=== PATIENT | male | born 1960 | race Caucasian/White ===

== ENCOUNTER 2018-11-07 15:10 | Inpatient (IN) ==
--- NOTE | 2018-11-07 15:33 | Emergency Department Note ---
Disposition Clinical Impression: Bleeding gums, Thrombocytopenia Disposition: Admitted As Inpatient Condition: Good Time of Disposition: 17:29 General Adult HPI - General Chief complaint: ED Abdominal Pain Stated complaint: ABD pain, "spitting up blood" Time Seen by Provider: 11/07/18 15:13 Source: patient Mode of arrival: ambulatory Limitations: no limitations Nursing Notes Reviewed: Yes Vital Signs Reviewed: Yes - History of Present Illness HPI Narrative: Patient is a 58-year-old male that presents emergency department due to tasting blood in his mouth. Patient states that it began shortly prior to arrival. Patient states that he is taking a nap and woke up and was tasting blood. Patient states that he has not vomiting blood, coughing up blood or having any throat symptoms. Patient states that he has been using a different toothbrush other than his usual oral-B. patient states that he does have some upper epigastric and right upper quadrant abdominal pain. Patient states that the abdominal pain is chronic and has not changed. When asked why he came in today was that the abdominal pain or the blood in his mouth he states that it is because he was tasting blood in the back of his mouth and did not know where it was coming from. Patient states that the blood is bright red in color. Pain Scale: 5 - Related Data Home Medications Medication Instructions Recorded Confirmed Exenatide Microspheres [Bydureon 06/28/15 06/28/15 Pen] Fenofibrate Nanocrystallized 06/28/15 [Tricor] Insulin Glargine,Hum.rec.anlog 06/28/15 [Lantus Solostar] Lisinopril [Zestril] 06/28/15 Metformin HCl [Glucophage] 06/28/15 Niacin [Endur-Acin] 06/28/15 Novolog Flexpen 06/28/15 Pantoprazole Sodium 06/28/15 Paroxetine HCl 06/28/15 Simvastatin [Zocor] 06/28/15 hydrOXYzine HCl [Hydroxyzine HCl] 06/28/15 Allergies Allergy/AdvReac Type Severity Reaction Status Date / Time No Known Allergies Allergy Verified 06/28/15 15:30 All systems ED: reviewed and negative except as stated. Constitutional: Denies: fever Cardiovascular: Denies: chest pain Respiratory: Denies: dyspnea Gastrointestinal: Reports: abdominal pain (Chronic). Denies: nausea, vomiting, diarrhea Genitourinary: Denies: urgency, dysuria, frequency Neurological: Denies: weakness, numbness, paresthesias Hematological/Lymphatic: Reports: other (Spitting up blood) Past Medical History - Past Medical History Medical history: Reports: diabetes, hyperlipidemia, hypertension Psychiatric history: Reports: no psych history - Social History Smoking Status: Never smoker Smokeless Tobacco Status: No Alcohol use: Reports: none Drug use: Reports: none Physical Exam - General Limitations: no limitations General appearance: alert, in no apparent distress - Head Head exam: atraumatic, normocephalic - Eye Eye exam: Present: normal appearance, EOMI - ENT ENT exam: other (Patient has a small amount of bright red blood this coming from around the top molars in the left teeth 14 and 15. No visible laceration.) - Neck Neck exam: Present: normal inspection, full ROM, trachea midline - Respiratory Respiratory exam: Present: normal lung sounds bilaterally. Absent: respiratory distress, wheezes - Cardiovascular Cardiovascular exam: Present: regular rate, normal rhythm, normal heart sounds, +S1, +S2 - Abdominal Exam Abdominal exam: Present: soft, tenderness, normal bowel sounds Abdominal tenderness: Present: RUQ, epigastrium, mild - Neurological Exam Neurological exam: Present: alert, oriented X3 - Psychiatric Psychiatric exam: Present: normal affect, normal mood - Skin Skin exam: Present: warm, dry, other (Petechiae on the lower extremity) Course Vital Signs Temperature 98.0 F 11/07/18 15:11 Pulse Rate 119 11/07/18 15:11 Respiratory Rate 18 11/07/18 15:11 Blood Pressure 137/88 11/07/18 15:11 O2 Sat by Pulse Oximetry 95 11/07/18 15:11 Temperature 98.0 F 11/07/18 15:11 Pulse Rate 92 11/07/18 16:18 Respiratory Rate 16 11/07/18 16:18 Blood Pressure 141/83 11/07/18 16:18 O2 Sat by Pulse Oximetry 96 11/07/18 16:18 Oxygen Delivery Oxygen Delivery Room Air Medical Decision Making - MDM Narrative Medical decision making narrative: Due the patient presents emergency Department with reports of spitting up blood a detailed physical exam was performed which showed small amount of bright red blood around teeth 14 and 15. Patient also had some petechiae on the lower extremities as well as the left forearm. Laboratory testing was obtained and showed the patient had platelets of 8. Called and spoke with hematology oncology with Dr. Sewell and she recommended the patient received Solu-Medrol. The patient will require a transfusion that will be done by the hospitalist. Spoke with the admitting hospitalist Dr. Robles and Dr. Jenkins and they have accepted the patient to their service. Patient be admitted to the hospital this time for further evaluation and management of his arms that opinion. Hematology oncology will see the patient in consult. Patient was updated on these findings is agreement with being admitted to the hospital. - Medical Records Medical records reviewed: Yes I reviewed the patient's medical records. - Lab Data Lab results reviewed: Yes I reviewed the patient's lab results. Result diagrams: 11/07/18 18:35 11/07/18 16:06 Lab Results 11/07/18 11/07/18 11/07/18 Range/Units 16:06 16:06 16:06 WBC 4.7 (4.3-11.1) K/mcL RBC 3.61 L (4.19-5.50) M/mcL Hgb 11.0 L (12.9-16.9) g/dL Hct 30.9 L (37.5-50.1) % MCV 85.6 (83.0-100.0) fL MCH 30.5 (28.0-33.3) pg MCHC 35.6 H (31.6-35.5) g/dL RDW 17.4 H (11.5-14.5) % Plt Count 8 L* (140-400) K/mcL MPV 8.4 L (9.4-12.4) fL Immature Gran % 0.2 (0-4) % Seg Neutrophils % 40.9 % Lymphocytes % 50.8 % Monocytes % 7.7 % Eosinophils % 0.2 % Basophils % 0.2 % Neutrophils # 1.9 (1.6-8.9) K/mcL Lymphocytes # 2.4 (0.6-4.6) K/mcL Monocytes # 0.4 (0.0-1.3) K/mcL Eosinophils # 0.0 (0.0-0.6) K/mcL Basophils # 0.0 (0.0-0.2) K/mcL Platelet Estimate Marked Decrease L (Normal) Immature Plt Fraction 4.3 (1.1-6.1) % PT 10.3 (9.4-12.1) Seconds INR 0.9 APTT 31.5 (26.0-36.0) Seconds Sodium 131 L (136-145) mEq/L Potassium 3.6 (3.5-5.1) mEq/L Chloride 97 L (98-107) mEq/L Carbon Dioxide 23 (23-29) mEq/L BUN 16 (6-20) mg/dL Creatinine 0.61 L (0.70-1.30) mg/dL Est GFR ( Amer) > 60 (> 60) Est GFR (Non-Af Amer) > 60 (> 60) BUN/Creatinine Ratio 26 (6-26) Glucose 296 H (70-105) mg/dL Calculated Osmolality 284 (280-300) Calcium 9.3 (8.6-10.3) mg/dL Attestation Statement - Attestation Attestation: I, Jose Juan Palm, examined this patient and my medical decision-making was reviewed with the CONTACT CENTER PROFESSIONAL/PA/Advanced Practice Nurse/Resident Physician. I agree with the documented findings, disposition and treatment plan as described except to the extent set forth below. 58-year-old male presents presents emergency department for further evaluation of tasting blood in his mouth. Patient states he often has bleeding from his gums with brushing and has to by special toothbrushes. Patient states that this is occurred intermittently over the past year. Patient denies fever, chills, nausea, vomiting, recent trauma. Upon evaluation of the patient's mouth he had had bleeding from the left maxillary gingiva. Patient does not appear to have erythema or abscess or other injury however he had persistent bleeding. On other physical examination the patient had petechiae of the bilateral lower extremity. He does state that he bleeds excessively when cut. We obtained laboratory evaluation which showed thrombocytopenia. We spoke with the financial coach who recommended steroids and platelet transfusion and to be admitted to hospitalist for further care and evaluation. Patient was comfortable with this plan of action.
[2018-11-07] MEDS ORDERED: 0.9 % Sodium Chloride 1,000 ML IVC ONE (15:52)
[2018-11-07 16:24] LABS: Basophils % 0.2 %; Immature Granulocytes % 0.2 % (0-4); Mean Corpuscular Volume 85.6 fL (83.0-100.0)
[2018-11-07 16:26] LABS: Eosinophils % 0.2 %; Hematocrit 30.9 % (37.5-50.1); Immature Platelets 4.3 % (1.1-6.1); Lymphocytes # 2.4 K/mcL (0.6-4.6); Lymphocytes % 50.8 %; Mean Corpuscular HGB Conc 35.6 g/dL (31.6-35.5); Mean Corpuscular Hemoglobin 30.5 pg (28.0-33.3); Mean Platelet Volume 8.4 fL (9.4-12.4); Monocytes # 0.4 K/mcL (0.0-1.3); Monocytes % 7.7 %; Neutrophils # 1.9 K/mcL (1.6-8.9); Red Blood Count 3.61 M/mcL (4.19-5.50); Red Cell Distribution Width 17.4 % (11.5-14.5); Segmented Neutrophils % 40.9 %; White Blood Count 4.7 K/mcL (4.3-11.1)
[2018-11-07 16:31] LABS: INR 0.9; Prothrombin Time 10.3 Seconds (9.4-12.1)
[2018-11-07 16:34] LABS: Activated Partial Thrombo Time 31.5 Seconds (26.0-36.0)
[2018-11-07 16:43] LABS: Blood Urea Nitrogen 16 mg/dL (6-20); Calcium 9.3 mg/dL (8.6-10.3); Carbon Dioxide 23 mEq/L (23-29); Chloride 97 mEq/L (98-107); Glucose 296 mg/dL (70-105); Osmolality,Calculated 284 (280-300); Potassium 3.6 mEq/L (3.5-5.1); Sodium 131 mEq/L (136-145)
[2018-11-07 16:45] LABS: BUN/Creatinine Ratio 26 (6-26); eGFR For African Americans > 60 (> 60); eGFR For Non-African Americans > 60 (> 60)
[2018-11-07 17:02] LABS: Platelet Count 8 K/mcL (140-400)
[2018-11-07 17:03] LABS: Platelet Estimate Marked Decrease (Normal)
[2018-11-07] MEDS ORDERED: methylPREDNISolone 125 MG/2 ML VIAL IVP ONE (17:11)
[2018-11-07] MEDS ORDERED: Naloxone 0.4 MG/ML INJ IVP PRN (18:14)
[2018-11-07] MEDS ORDERED: D5% in Water 1,000 ML IVC PRN (18:18)
[2018-11-07] MEDS ORDERED: *HR* Dextrose 50 % in Water (Syg) 50 ML SYRINGE IVP PRN (18:18)
[2018-11-07] MEDS ORDERED: Dextrose Gel 15 GM/37.5 ML TUBE PO PRN ×2 (18:18)
[2018-11-07] MEDS ORDERED: Isovue-370 500 ML BOTTLE IVP ONE (18:20)
[2018-11-07] MEDS ORDERED: Ondansetron 4 MG/2 ML VIAL IVP PRN (18:24)
--- NOTE | 2018-11-07 18:24 | Internal Med History&Physical ---
Date of Encounter: 11/07/18 Time of Encounter: 18:24 Internal Medicine - H&P: HPI Chief complaint: Blood in mouth History of present illness: Mr. Buckner is a 58 year old male with past medical history of diabetes on insulin poorly controlled and GERD. He presented to the ED this afternoon complaining of blood in his mouth upon waking up. Reports for the past year he has had bleeding gums while brushing his teeth. Additionally has noticed petechiae in his lower extremity as well as abdomen for the past 2 month. Denies any recent layo-aao-vbzarbu medication or antiplatelet use. Does state about one month ago had severe back pain, was thought to have nephrolithiasis and was prescribed a medication. He is unsure of the name of the medication but received it from [facility]. Did see prescription for fluconazole on 08/24/18. Attempted to call her pharmacy but they are closed at this time. Reports recently donating his blood to [facility] one month ago. Complaining of overall fatigue ongoing for over a year as well as poor appetite. States he had 10 pound weight loss 6 months ago but has not been checking his weight frequently. Also reports abdom inal pain and diarrhea for the past 3 days. Denies any recent antibiotic use or recent camping or travel. Additionally denies alcohol use and reports he use to only socially drink in the past. Also quit smoking 30 years ago. States he only takes his prescribed medications when he remembers and supplemental cinnamon. Denies any family history of leukemia or lymphoma or bleeding disorder. Denies fever, chills, shortness of breath, chest pain, nausea, hematemesis, melena, hematochezia. In the ED his platelet count was noted to be 8. INR was 0.9. Hemoglobin was noted to be 11. Renal function was within normal limits. Upon review of his outpatient visit with his PCP on 08/10/18 received refills for: Insulin, cinnamon tablet, metformin, lisinopril 10 mg, simvastatin 10 mg, paroxetine 40 mg, pantoprazole 40 mg, niacin 50 mg, loratadine 10 mg, hydroxyzine 25 mg and aspirin 81 mg. Past Med Surg Social Fam HX - Past Medical History Medical history: diabetes, hyperlipidemia, hypertension Psychiatric history: no psych history - Past Surgical History Additional surgical history: Hemorrhoid banding, tonsillectomy, EGD - Social History Smoking Status: Never smoker Smokeless Tobacco Status: No Alcohol use: none Drug use: none - Family History Father Hx Family Cardiac Disorders: Yes (Heart failure) Mother Hx Family Endocrine Disorder: Yes (Diabetes) Internal Medicine - H&P: Meds Exenatide Microspheres [Bydureon Pen] 06/28/15 [History] Fenofibrate Nanocrystallized [Tricor] 06/28/15 [History] Insulin Glargine,Hum.rec.anlog [Lantus Solostar] 06/28/15 [History] Lisinopril [Zestril] 06/28/15 [History] Metformin HCl [Glucophage] 06/28/15 [History] Niacin [Endur-Acin] 06/28/15 [History] Novolog Flexpen 06/28/15 [History] Pantoprazole Sodium 06/28/15 [History] Paroxetine HCl 06/28/15 [History] Simvastatin [Zocor] 06/28/15 [History] hydrOXYzine HCl [Hydroxyzine HCl] 06/28/15 [History] Allergy/AdvReac Type Severity Reaction Status Date / Time No Known Allergies Allergy Verified 06/28/15 15:30 All Systems PM: A 10-system review of systems was performed and is negative for pertinent findings except as documented above in the HPI. - Constitutional Constitutional: malaise, no chills, no fever(s) - EENT Eyes: no blurry vision, no loss of peripheral vision, no pain - Cardiovascular Cardiovascular ROS IM: no chest pain, no dyspnea, no dyspnea on exertion, no palpitations - Respiratory Respiratory: no cough, no dyspnea, no hemoptysis - Gastrointestinal Gastrointestinal: abdominal pain, diarrhea, dyspepsia, no hematochezia, no melena - Genitourinary Genitourinary ROS male: no dysuria, no hematuria - Musculoskeletal Musculoskeletal ROS IM: back pain, myalgias, no joint swelling - Integumentary Integumentary IM: unusual bruising, other (petechiae ), no pruritus, no rash - Neurological Neurological ROS: no abnormal gait, no frequent falls, no paresthesias - Hematologic/Lymphatic Hematologic/Lymphatic: easy bleeding, easy bruising - Constitutional Vitals: Temp Pulse Resp BP Pulse Ox 98.0 F 113 16 125/72 98 11/07/18 15:11 07/28/19 17:51 11/07/18 17:51 11/07/18 17:51 11/07/18 17:51 Exam: Gen: Vitals noted. No acute distress. Appears comfortable. Eyes: anicteric sclerae, moist conjunctivae; no lid-lag HENT: Atraumatic; oropharynx clear with moist mucous membranes and no mucosal ulcerations Neck: Trachea midline; supple, left supraclavicular lymph node Cardiac: RRR, no murmur, +S1/S2. No JVD noted. Pulmonary: CTA bilaterally, no wheezes, rales or rhonchi, equal chest expansion Abdomen: soft, diffuse tenderness in abdomen, hepatomegaly, petechiae on abdomen MSK: ROM intact, mid back has 5 cm fullness nontender Extremities: no edema, nontender calf Skin: Normal temperature, petechiae throughout lower extremity as well as abdomen Neuro: moves all extremities, no focal deficits. Psych: Appropriate mood and behavior. A&Ox3 Internal Med - H&P Results - Labs CBC & Chem 7: 11/07/18 16:06 11/07/18 16:06 Labs: Short CBC 11/07/18 Range/Units 16:06 WBC 4.7 (4.3-11.1) K/mcL Hgb 11.0 L (12.9-16.9) g/dL Hct 30.9 L (37.5-50.1) % Plt Count 8 L* (140-400) K/mcL Neutrophils # 1.9 (1.6-8.9) K/mcL BMP 11/07/18 16:06 Sodium 131 L Potassium 3.6 Chloride 97 L Carbon Dioxide 23 BUN 16 Creatinine 0.61 L Glucose 296 H Calcium 9.3 - Assessment and Plan (1) Thrombocytopenia Current Visit: Yes Status: Acute Assessment and plan: Mr. Davis presented to the ED due to blood in his mouth this morning Platelet noted to be 8, repeat check 7, INR within normal limits Denies alcohol use Previous platelet count 330 on 02/09/20 Etiology appears to be multifactorial: Differentials include ITP, TTP, HUS, leukemia, DIC, sepsis Unlikely sepsis due to no fever, no tachycardia, no tachypnea, no elevated white blood cell count Unlikely HUS due to normal renal function Concern for malignancy due to lack of energy for the past year as well as hepatosplenomegaly on exam and left supraclavicular lymph node Does have petechiae throughout his lower extremity as well as abdomen Given no recent history of travel unlikely zoonotic infection -Type and screen pending -CT abdomen pelvis and chest pending to consider chest and abdominal malignancy -Fibrinogen and d-dimer pending to rule out DIC -LFTs pending -Blood smear pending -HIV and hepatitis panel pending -GI stool panel pending -Repeat CBC and BMP in the morning -1 unit of platelets ordered (2) Diarrhea Current Visit: Yes Status: Acute Assessment and plan: Reports history of diarrhea and constipation alternating Does state for the past few days has noticed loose stools Denies any recent antibiotic use or intake of abnormal food Concern for infectious diarrhea -GI stool panel pending -Repeat CBC in the morning Qualifiers: Diarrhea type: unspecified type Qualified Code(s): R19.7 - Diarrhea, unspecified (3) Bleeding gums Current Visit: Yes Status: Acute Assessment and plan: Reports ongoing bleeding gum for the past 1 year States this morning woke up with blood in his mouth Differential could include von Willebrand disease versus malignancy Due to no previous history of easy bleeding and bruising and no family history of hematological disorder unlikely inherited disorder -Ristocetin cofactor von Willebrand activity pending -1 unit of packed platelets ordered -Avoid any external stimulation such as brushing (4) Anemia Current Visit: Yes Status: Acute Assessment and plan: Hemoglobin noted to be 11 at admission, repeat hemoglobin 10.6 after 1 L of fluids Last hemoglobin on 02/08/18 noted to be 14.4 Reports donating blood to [facility] one month ago Does have petechiae but no hematoma visualized -B12 and folate levels pending -Repeat CBC in the morning -Blood smear and type and screen pending Qualifiers: Anemia type: unspecified type Qualified Code(s): D64.9 - Anemia, unspecified (5) Diabetes Current Visit: Yes Status: Chronic Assessment and plan: History of type 2 diabetes supposed to be on insulin at home Reports poor compliance with his insulin and diet Last A1c in 02/08/18 of 11.4 -A1c pending -Diabetic diet -30 unit detemir at night and medium dose sliding scale -Continue [id number] glucose check Qualifiers: Diabetes mellitus type: type 2 Diabetes mellitus group home insulin use: with terminal make up operator use Diabetes mellitus complication status: with other specified complication Qualified Code(s): E11.69 - Type 2 diabetes mellitus with other specified complication; Z79.4 - superintendent terminal (current) use of insulin (6) GERD (gastroesophageal reflux disease) Current Visit: Yes Status: Chronic Assessment and plan: History of GERD On pantoprazole at home, reports ongoing burning in his throat after eating for the last 5 years Denies any hematemesis Does have epigastric tenderness -Continue 40 mg IV Protonix Qualifiers: Esophagitis presence: esophagitis presence not specified Qualified Code(s): K21.9 - Gastro-esophageal reflux disease without esophagitis (7) DVT prophylaxis Current Visit: Yes Status: Acute Assessment and plan: Hold any anticoagulants at this time given platelets of 7 - Time Spent With Patient Total time spent is greater than 50% in coordination of care (as documented) at patient's floor/unit and/or counseling patient:
[2018-11-07] MEDS ORDERED: Insulin LISPRO 300 UNITS/3 ML VIAL SQ SCH ×2 (18:30→21:00)
[2018-11-07 18:44] LABS: Eosinophils % 0.2 %; Hematocrit 29.9 % (37.5-50.1); Hemoglobin 10.6 g/dL (12.9-16.9); Immature Granulocytes % 0.2 % (0-4); Immature Platelets 4.2 % (1.1-6.1); Lymphocytes % 51.8 %; Mean Corpuscular HGB Conc 35.5 g/dL (31.6-35.5); Mean Corpuscular Hemoglobin 30.4 pg (28.0-33.3); Mean Corpuscular Volume 85.7 fL (83.0-100.0); Mean Platelet Volume 9.5 fL (9.4-12.4); Monocytes % 7.2 %; Red Blood Count 3.49 M/mcL (4.19-5.50); Red Cell Distribution Width 17.7 % (11.5-14.5); Segmented Neutrophils % 40.6 %; White Blood Count 5.2 K/mcL (4.3-11.1)
[2018-11-07 18:45] LABS: Lymphocytes # 2.7 K/mcL (0.6-4.6); Monocytes # 0.4 K/mcL (0.0-1.3); Neutrophils # 2.1 K/mcL (1.6-8.9)
[2018-11-07 18:51] LABS: Platelet Count 7 K/mcL (140-400)
[2018-11-07 18:55] LABS: Alanine Aminotransferase 28 Units/L (7-52); Albumin 4.2 g/dL (3.5-5.7); Albumin/Globulin Ratio 1.4 (1.1-2.2); Alkaline Phosphatase 69 Units/L (34-104); Aspartate Amino Transferase 25 Units/L (13-39); Bilirubin,Direct 0.1 mg/dL (0.0-0.2); Bilirubin,Indirect 0.3 mg/dL (0.0-1.2); Bilirubin,Total 0.4 mg/dL (0.3-1.0); Globulin 3.1 g/dL (2.4-3.5); Total Protein 7.3 g/dL (6.4-8.9)
[2018-11-07 19:03] LABS: % Iron Saturation 39 % (20-55); Iron 143 mcg/dL (65-175); Transferrin 260 mg/dL (203-362)
[2018-11-07 19:08] LABS: Fibrinogen 290 mg/dL (169-393)
[2018-11-07 19:17] LABS: D-Dimer 320 ng/mLFEU (0-500)
[2018-11-07 19:33] LABS: Platelet Estimate Marked Decrease (Normal)
[2018-11-07 19:36] LABS: Folate > 22.3 ng/mL (3.0-16.0); Vitamin B12 738 pg/mL (250-1100)
[2018-11-07 19:42] LABS: Hepatitis B Surface Antigen Nonreactive (Nonreactive)
[2018-11-07 20:11] LABS: HIV-1&2 Antibody & p24 Ag Nonreactive (Nonreactive); Hepatitis C Virus Antibody Nonreactive (Nonreactive)
[2018-11-07 20:12] LABS: Hepatitis B Core IgM Nonreactive (Nonreactive)
[2018-11-07 20:13] LABS: Hepatitis A Antibody IgM Nonreactive (Nonreactive)
[2018-11-07] MEDS ORDERED: Pantoprazole 40 MG VIAL IVP SCH (21:00)
[2018-11-07] MEDS ORDERED: Insulin DETEMIR 100 UNIT/ML X5UNITS SQ SCH (21:00)
[2018-11-08 05:02] LABS: Hemoglobin 10.5 g/dL (12.9-16.9); Immature Granulocytes % 0.4 % (0-4); Lymphocytes % 19.7 %
[2018-11-08 05:04] LABS: Hematocrit 29.8 % (37.5-50.1); Immature Platelets 4.4 % (1.1-6.1); Lymphocytes # 1.1 K/mcL (0.6-4.6); Mean Corpuscular HGB Conc 35.2 g/dL (31.6-35.5); Mean Corpuscular Hemoglobin 30.5 pg (28.0-33.3); Mean Corpuscular Volume 86.6 fL (83.0-100.0); Mean Platelet Volume 9.5 fL (9.4-12.4); Monocytes # 0.1 K/mcL (0.0-1.3); Neutrophils # 4.3 K/mcL (1.6-8.9); Red Blood Count 3.44 M/mcL (4.19-5.50); Segmented Neutrophils % 77.9 %; White Blood Count 5.5 K/mcL (4.3-11.1)
[2018-11-08 05:07] LABS: Platelet Count 21 K/mcL (140-400)
[2018-11-08 05:20] LABS: BUN/Creatinine Ratio 22 (6-26); Blood Urea Nitrogen 14 mg/dL (6-20); Calcium 9.1 mg/dL (8.6-10.3); Carbon Dioxide 22 mEq/L (23-29); Chloride 100 mEq/L (98-107); Glucose 293 mg/dL (70-105); Osmolality,Calculated 287 (280-300); Potassium 3.7 mEq/L (3.5-5.1); Sodium 133 mEq/L (136-145); eGFR For African Americans > 60 (> 60); eGFR For Non-African Americans > 60 (> 60)
[2018-11-08] MEDS ORDERED: Ondansetron 4 MG/2 ML VIAL IVP PRN (07:24)
[2018-11-08] MEDS ORDERED: D5% in Water 1,000 ML IVC PRN (07:24)
[2018-11-08] MEDS ORDERED: Dextrose Gel 15 GM/37.5 ML TUBE PO PRN ×2 (07:24)
[2018-11-08] MEDS ORDERED: *HR* Dextrose 50 % in Water (Syg) 50 ML SYRINGE IVP PRN (07:24)
[2018-11-08] MEDS ORDERED: Naloxone 0.4 MG/ML INJ IVP PRN (07:24)
[2018-11-08] MEDS: Pantoprazole 40 MG VIAL IVP SCH (07:54)
[2018-11-08] MEDS: Insulin LISPRO 300 UNITS/3 ML VIAL SQ SCH ×3 (07:55→16:49)
[2018-11-08 07:57] LABS: Estimated Average Glucose 344 mg/dl
[2018-11-08 08:32] LABS: Thyroid Stimulating Hormone 0.198 mcIU/mL (0.340-5.600)
--- NOTE | 2018-11-08 08:44 | Oncology Inp Consult Note ---
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 S/p plt transfusion and steroids. May continue methylprednisone or PO dexamethasone. PS path review. Mild anemia-w/u nl, add ferritin. LAbs do not suggest TTP/DIC/hemolytic process. Med list reviewed. Viral hepatitis negative CT abd-steatosis, nodularity. GI eval as outpatient for cirrhosis. Hx DM - Data of Consult Requesting Physician: Shad Garcia Primary Care Provider: PCP NONE - Consult Narrative Reason for consult: Thrombocytopenia History of present illness: 58-year-old male with medical history significant for diabetes mellitus, gastric esophageal reflux disease, quite normal platelet counts and lab works in 2018 had noticed bleeding in the gums a day prior to admission and was evaluated in the ED. Patient had routine lab works that showed profound thrombus cytopenia platelets 88,000. Prior platelet counts were around 300,000. Mild anemia hemoglobin at 11 g. Hematology consulted with low platelet count. He also completed CT scan of chest abdomen and pelvis in the ED. Platelet transfusion was given after Solu-Medrol IV due to bleeding. Repeat platelet counts this a.m. is around 20,000. CT scan of the abdomen showed nodular changes in the liver. Vital hepatitis panel has been negative. Patient denies any upper respiratory like illness sore throat diarrhea or generalized body aches. He denies any palpable lumps he denies night sweats, some weight loss- intentional. He has not had prior bleeding episodes. Denies any melena or hematochezia. Past Med Surg Social Fam HX - Past Medical History Medical history: diabetes, hyperlipidemia, hypertension Psychiatric history: no psych history - Past Surgical History Additional surgical history: Hemorrhoid banding, tonsillectomy, EGD - Social History Smoking Status: Former smoker Smokeless Tobacco Status: No Alcohol use: none Drug use: none - Family History Father Hx Family Cardiac Disorders: Yes (Heart failure) Mother Hx Family Endocrine Disorder: Yes (Diabetes) Medications and Allergies Exenatide Microspheres [Bydureon Pen] 06/28/15 [History] Fenofibrate Nanocrystallized [Tricor] 06/28/15 [History] Insulin Glargine,Hum.rec.anlog [Lantus Solostar] 06/28/15 [History] Lisinopril [Zestril] 06/28/15 [History] Metformin HCl [Glucophage] 06/28/15 [History] Niacin [Endur-Acin] 06/28/15 [History] Novolog Flexpen 06/28/15 [History] Pantoprazole Sodium 06/28/15 [History] Paroxetine HCl 06/28/15 [History] Simvastatin [Zocor] 06/28/15 [History] hydrOXYzine HCl [Hydroxyzine HCl] 06/28/15 [History] Allergy/AdvReac Type Severity Reaction Status Date / Time No Known Allergies Allergy Verified 06/28/15 15:30 Constitutional: Present: weight loss Additional comments: gum bleeding Additional comments: no cp, plapitations Additional comments: no dyspnea or cough Additional comments: no hematemesis or david Additional comments: denied joint aches or headaches Additional comments: no sensory or motor deficits Oncology - Exam - Constitutional General appearance: no acute distress, obese - Head Head exam: Present: atraumatic, normal inspection - Eye Eye exam: Present: conjuntiva pink, sclera anicteric - ENT ENT exam: Present: mucous membranes moist - Neck Neck exam: Present: full ROM - Respiratory Respiratory exam: Present: CTAB - Cardiovascular Cardiovascular exam: Present: +S1, +S2 - GI/Abdominal GI/Abdominal exam: Present: normal bowel sounds, soft Additional comments: spleenomegaly not appreciated - Extremities Exam Extremities exam: Present: normal inspection Additional comments: no edema - Neurological Exam Neurological exam: Present: alert, CN II-XII intact, oriented X3, no focal deficits Oncology Inpatient Results Labs: plt 8k---21k. Hgb ~10-11gm Consult Discharge Plan - Plan Referrals: NONE,PCP [Primary Care Provider] - Inpatient Charges Provider: Dr. Tigre Stewart Consult - Inpatient: [id number]
--- NOTE | 2018-11-08 12:23 | Internal Med Progress Note ---
Hospitalist Progress Note - Encounter Date of Encounter: 11/08/18 Time of Encounter: 12:21 - Subjective Interval History: Pt denies any complaints or issues. No further gum bleeding. No side effects from platelet transfusion last night. Denies CP, SOB, N/V, but is having his chronic diarrhea. Seen by Onc this AM who patient said feels he might can leave tomorrow if platelets stable. - Exam Vitals: Temp Pulse Resp BP Pulse Ox 97.7 F 82 10 134/80 98 11/08/18 07:00 11/08/18 08:00 11/08/18 08:00 11/08/18 08:00 11/08/18 09:48 Exam: General: NAD, good eye contact, well appearing, obese Thoracic: Normal breath sounds b/l, no wheezing or crackles Cardio: Normal S1 and S2, regular rate and rhythm Abdomen: Soft, nontender, liver edge palpable 3-4 cm below costal margin, obese Extremities: Warm, well perfused. DP pulses 2+ b/l. No edema. Skin: Intact. Few small bruises on abd, and scattered petechiae diffusely Neuro: Awake, fully oriented. Speech fluent - Summary of Assessment and Plan Summary of Assessment and Plan: Cj Buckner is a 58 M w hx IDDM2, obesity, GERD, who p/w spontaneous bleeding from his gums, found to have Plt 8, concerning for severe thrombocytopenia. Absence of alarming signs or labs therefore suggest possible ITP. Thrombocytopenia: plt 8 on admit, up to 21 today s/p transfusion 1p plt. No further spontaneous bleeding. Labs thus far reassuring including no blasts, coags wnl, renal fxn wnl, no fevers, HIV and hep panel negative. CT chest/abd/pelvis without malignancy. - Smear pending - Oncology consult - continue steroids, methylpred 40 q8h - monitor platelets daily - pending stool labs for reported chronic diarrhea DM2: insulin dependent, uncontrolled, utilize basal + SSI Obesity: BMI 37 GERD: home PPI PPx: contraindicated Activity: ambulate FEN: ADA, no MIVF Lines: PIV Consults: Heme Code: Full Dispo: patient requires inpatient eval and management at this time. Anticipate 1 -2 days. Will be homegoing Internal Medicine: Result - Labs CBC & Chem 7: 11/08/18 04:40 11/08/18 04:40 Labs: Short CBC 11/07/18 11/07/18 11/08/18 Range/Units 16:06 18:35 04:40 WBC 4.7 5.2 5.5 (4.3-11.1) K/mcL Hgb 11.0 L 10.6 L 10.5 L (12.9-16.9) g/dL Hct 30.9 L 29.9 L 29.8 L (37.5-50.1) % Plt Count 8 L* 7 L* 21 L* D (140-400) K/mcL Neutrophils # 1.9 2.1 4.3 (1.6-8.9) K/mcL BMP 11/07/18 11/08/18 16:06 04:40 Sodium 131 L 133 L Potassium 3.6 3.7 Chloride 97 L 100 Carbon Dioxide 23 22 L BUN 16 14 Creatinine 0.61 L 0.64 L Glucose 296 H 293 H Calcium 9.3 9.1 Liver Function 11/07/18 Range/Units 16:06 Total Bilirubin 0.4 (0.3-1.0) mg/dL Direct Bilirubin 0.1 (0.0-0.2) mg/dL AST 25 (13-39) Units/L ALT 28 (7-52) Units/L Alkaline Phosphatase 69 (34-104) Units/L Albumin 4.2 (3.5-5.7) g/dL - ABG Interpretation ABG results: PT/INR, D-dimer PT 10.3 Seconds (9.4-12.1) 11/07/18 16:06 D-Dimer 320 ng/mLFEU (0-500) 11/07/18 18:35 - Impressions Impressions Abdomen/Pelvis CT 11/07/18 18:20 IMPRESSION: 1. No acute abnormalities in the chest, abdomen or pelvis. 2. Incidental note of a thyroid goiter extending into the upper mediastinum. 3. Diffuse hepatic steatosis and mild nodularity consistent with mild cirrhosis. 4. Mild diverticulosis but no acute diverticulitis. D/ / 11/07/2018 19:23:00 Estella Acosta MD / bcarter Interpreting Provider: Estella Acosta MD Chest CT 11/07/18 18:20 IMPRESSION: 1. No acute abnormalities in the chest, abdomen or pelvis. 2. Incidental note of a thyroid goiter extending into the upper mediastinum. 3. Diffuse hepatic steatosis and mild nodularity consistent with mild cirrhosis. 4. Mild diverticulosis but no acute diverticulitis. D/ : / 11/07/2018 19:23:00 Estella Acosta MD / bcarter Interpreting Provider: Estella Acosta MD Consult Discharge Plan - Plan Referrals: NONE,PCP [Primary Care Provider] -
[2018-11-08 13:47] LABS: Adenovirus F 40/41 PCR Not detected (Not detect); Astrovirus PCR Not detected (Not detect); C.difficile Toxin A/B Gene PCR Not detected (Not detect); Campylobacter by PCR Not detected (Not detect); Cryptosporidium by PCR Not detected (Not detect); Cyclospora cayetanensis PCR Not detected (Not detect); E. coli O157 by PCR Not detected (Not detect); Entamoeba histolytica PCR Not detected (Not detect); Enteroaggregative E.coli(EAEC) Not detected (Not detect); Enteropathogenic E.coli(EPEC) Not detected (Not detect); Enterotoxigenic E.coli (ETEC) Not detected (Not detect); Giardia lamblia PCR Not detected (Not detect); Norovirus GI/GII PCR Not detected (Not detect); Plesiomonas shigelloides PCR Not detected (Not detect); Rotavirus A PCR Not detected (Not detect); Salmonella PCR Not detected (Not detect); Sapovirus PCR Not detected (Not detect); Shig/EnteroinvasiveE coli EIEC Not detected (Not detect); Shigalike tox-prod E coli STEC Not detected (Not detect); Vibrio PCR Not detected (Not detect); Vibrio cholerae PCR Not detected (Not detect); Yersinia enterocolitica PCR Not detected (Not detect)
[2018-11-08] MEDS: MethylPREDNISolone 40 MG/ML VIAL IVP SCH (16:49)
[2018-11-08] MEDS ORDERED: hydrOXYzine pamoate 25 MG CAPSULE PO PRN (19:47)
[2018-11-08] MEDS ORDERED: Insulin DETEMIR 100 UNIT/ML X5UNITS SQ SCH (21:00)
[2018-11-08] MEDS ORDERED: Insulin LISPRO 300 UNITS/3 ML VIAL SQ SCH (21:00)
[2018-11-09] MEDS: MethylPREDNISolone 40 MG/ML VIAL IVP SCH ×2 (00:02→07:42)
[2018-11-09 04:24] LABS: Red Blood Count 3.33 M/mcL (4.19-5.50)
[2018-11-09 04:26] LABS: Basophils % 0.2 %; Hematocrit 29.6 % (37.5-50.1); Hemoglobin 10.3 g/dL (12.9-16.9); Immature Granulocytes % 0.3 % (0-4); Immature Platelets 4.3 % (1.1-6.1); Lymphocytes # 1.2 K/mcL (0.6-4.6); Lymphocytes % 19.4 %; Mean Corpuscular HGB Conc 34.8 g/dL (31.6-35.5); Mean Corpuscular Hemoglobin 30.9 pg (28.0-33.3); Mean Corpuscular Volume 88.9 fL (83.0-100.0); Mean Platelet Volume 10.4 fL (9.4-12.4); Monocytes # 0.1 K/mcL (0.0-1.3); Monocytes % 2.3 %; Red Cell Distribution Width 18.5 % (11.5-14.5); Segmented Neutrophils % 77.8 %
[2018-11-09 04:29] LABS: Neutrophils # 4.7 K/mcL (1.6-8.9); Platelet Count 17 K/mcL (140-400)
--- NOTE | 2018-11-09 07:41 | Discharge Summary ---
- NOTES TO OUTPATIENT PROVIDER Notes to Outpatient Provider: Critical thrombocytopenia; close Heme follow up w Dr Weinstein later this week Orders not resulted at time of discharge: Pending orders 11/07/18 19:33 Ristocetin Cofactor-VWF Active Stat Date of Encounter: 11/09/18 Time of Encounter: 07:39 - Discharge Diagnosis (1) Thrombocytopenia Priority: Primary Status: Acute Hospital course: Dear Doctors, I recently had the opportunity to care for this patient during their recent hospital stay at [facility]. Cj Buckner is a 58 M w hx IDDM2, obesity, GERD, who p/w spontaneous bleeding from his gums, found to have Plt 8, concerning for severe thrombocytopenia. In the hospital, pt typed/screened and given transfusion of platelets. Investigation into potential causes thus far unremarkable, including normal CBC & Diff, normal smear w/o blasts or schistocytes, normal INR dimer and fibrinogen, and normal renal function. No recent trauma, heparin use, or EtOH use. CT chest and abd revealed underlying cirrhosis but no other abnormalities. Absence of alarming symptoms, signs, or labs therefore suggest possible ITP. Onc Dr Weinstein was consulted, who recommended starting patient on steroids. He will be discharged on prednisone 1 mg/kg with close outpatient follow up and lab recheck. Dx: Thrombocytopenia, spontaneous bleeding of gums Pertinent tests/consults: Heme Follow up: Heme Dr Weinstein for CBC this Thursday Tests pending: ristocetin cofactor Med changes: - new Prednisone 1 mg/kg (100 mg) daily, will taper as outpatient Mental status: awake, fully oriented Code status: Equal Opportunity Specialist spent on discharge: 35 minutes It has been my pleasure participating in this patient's care. Please contact me with any questions or concerns regarding their hospital stay. Sincerely, Shad Garcia MD - Discharge Medications Prescriptions: New predniSONE [PredniSONE] 100 mg PO DAILY #100 tablet Continued hydrOXYzine HCl [Hydroxyzine HCl] 25 mg PO Q8H PRN PRN Reason: Anxiety Fenofibrate Nanocrystallized [Tricor] 48 mg PO DAILY Insulin ASPART [Novolog Flexpen] 0 units SQ TIDWM Lisinopril [Zestril] 10 mg PO DAILY Insulin Glargine,Hum.rec.anlog [Basaglar Kwikpen U-100] 80 unit SQ QAM PARoxetine HCl [Paroxetine HCl] 40 mg PO QAM Pantoprazole Sodium 40 mg PO DAILY Niacin 250 mg PO BID Metformin HCl 1,000 mg PO BID Loratadine [Allergy Relief] 10 mg PO DAILY PRN PRN Reason: Allergy Symptoms Simvastatin [Zocor] 10 mg PO QPM Dulaglutide [Trulicity] 1.5 mg SQ ROBLES Discontinued Aspirin [Lo-Dose Aspirin EC] 81 mg PO DAILY Home Medications: Dulaglutide [Trulicity] 1.5 mg SQ ROBLES 11/08/18 [History] Fenofibrate Nanocrystallized [Tricor] 48 mg PO DAILY 11/08/18 [History] Insulin ASPART [Novolog Flexpen] 0 units SQ TIDWM 11/08/18 [History] Insulin Glargine,Hum.rec.anlog [Basaglar Kwikpen U-100] 80 unit SQ QAM 11/08/18 [History] Lisinopril [Zestril] 10 mg PO DAILY 11/08/18 [History] Loratadine [Allergy Relief] 10 mg PO DAILY PRN 11/08/18 [History] Metformin HCl 1,000 mg PO BID 11/08/18 [History] Niacin 250 mg PO BID 11/08/18 [History] PARoxetine HCl [Paroxetine HCl] 40 mg PO QAM 11/08/18 [History] Pantoprazole Sodium 40 mg PO DAILY 11/08/18 [History] Simvastatin [Zocor] 10 mg PO QPM 11/08/18 [History] hydrOXYzine HCl [Hydroxyzine HCl] 25 mg PO Q8H PRN 11/08/18 [History] predniSONE [PredniSONE] 100 mg PO DAILY #100 tablet 11/09/18 [Rx] Allergies/Adverse Reactions: Allergy/AdvReac Type Severity Reaction Status Date / Time No Known Allergies Allergy Verified 06/28/15 15:30 Date of admission: 11/07/18 17:45 Primary care physician: PCP NONE Consults: 11/07/18 17:11 Consult to Oncology Hematology [CONS] Stat Consulting Provider: Oncology [facility] Reason for Consult: Thrombocytonpenia Time Notified: 17:12 Call Completed: Yes 11/07/18 20:13 Consult to Pastoral Services [CONS] Routine Comment: - Constitutional Vitals: Temp Pulse Resp BP Pulse Ox 97.4 F L 65 14 116/75 96 11/09/18 06:48 11/09/18 06:48 11/09/18 06:48 11/09/18 06:48 11/09/18 06:48 Exam: General: NAD, good eye contact, well appearing, obese Thoracic: Normal breath sounds b/l, no wheezing or crackles Cardio: Normal S1 and S2, regular rate and rhythm Abdomen: Soft, nontender, liver edge palpable 3-4 cm below costal margin, obese Extremities: Warm, well perfused. DP pulses 2+ b/l. No edema. Skin: Intact. Few small bruises on abd, and scattered petechiae diffusely Neuro: Awake, fully oriented. Speech fluent - Patient Status Disposition: Home, Self-Care Condition: Serious Functional capacity at discharge: independent ambulation Overall status at discharge: patient is progressing back to baseline - Ambulatory Orders Ambulatory Orders: Complete Blood Count [HEME] Time Frame: 11/12/18, Facility: [facility], Location: Lab - Discharge Instructions Follow Up With: NONE,PCP [Primary Care Provider] - Nelly Stewart MD [Partnered Physician] - 11/12/18 (2-3 days) - Diet and Activity Activity: resume usual activities as tolerated (no strenuous or dangerous activity) Diet: advance to your usual diet
[2018-11-09] MEDS: Insulin LISPRO 300 UNITS/3 ML VIAL SQ SCH ×2 (07:43→12:03)
[2018-11-09] MEDS: Pantoprazole 40 MG VIAL IVP SCH (07:43)
[2018-11-09 11:09] LABS: Red Cell Distribution Width 18.5 % (11.5-14.5)
[2018-11-09 11:11] LABS: Hematocrit 29.9 % (37.5-50.1); Hemoglobin 10.2 g/dL (12.9-16.9); Immature Platelets 3.3 % (1.1-6.1); Mean Corpuscular HGB Conc 34.1 g/dL (31.6-35.5); Mean Corpuscular Volume 87.9 fL (83.0-100.0); Mean Platelet Volume 10.3 fL (9.4-12.4); Red Blood Count 3.4 M/mcL (4.19-5.50); White Blood Count 6.6 K/mcL (4.3-11.1)
[2018-11-09 11:39] VITALS: BP 129/76
--- NOTE | 2018-11-09 13:44 | Oncology Inp Progress Note ---
<Magalie Barraza - Last Filed: 11/09/18 14:15> Date of Encounter: 11/09/18 Time of Encounter: 12:50 (1) Thrombocytopenia Status: Acute Assessment and plan: Plts 16,000 No active bleeding noted at this time. CT chest/abdomen and pelvis done while hospitalized. OK for discharge from Hem/Onc perspective. Patient will need CBC at the [facility] on Thursday, November 12, 2018. He is instructed to wait for lab results and directions. He is to be discharged with prednisone 1 mg/kg PO daily. Prednisone to be tapered as an outpatient. Patient should also receive GI prophylaxis due to high-dose steroids (omeprazole, protonix). He does c/o diffuse abdominal pain after eating. Prednisone may aggravate cause gastritis. Can consider GI referral if symptoms persist and platelets are adequate for EGD. (2) Anemia Status: Acute Assessment and plan: Hemoglobin 10.2-11: stable Can continue to monitor as an outpatient. Qualifiers: Anemia type: unspecified type Qualified Code(s): D64.9 - Anemia, unspecified Oncology: Subj Interval history: Mr. Buckner is awake an alert sitting up in a chair this afternoon with at bedside. He voices feeling ready for discharge. [facility]. He is instructed to sit and wait for the results to be reviewed and new directions for medication, if needed. He voices acceptance and states that he will definitely get his labs done on Thursday (November 12, 2018). Discussed need to continue oral prednisone at discharge. He does c/o stomach discomfort after eating. He denies abdominal pain or discomfort at this time. Denies nausea or vomiting. - Additional findings Additional findings: General: Alert and oriented, well appearing. Skin: No rashes or petechiae. Lungs: Clear to auscultation Cardiovascular: Regular rate and rhythm. No gallops, murmurs, or rubs. Abdomen: Obese, nontender; no organomegaly or masses palpable. Extremities: No edema. No calf swelling or tenderness. No joint deformity. Neurologic: Alert, cranial nerves II-XII intact; no focal weakness or sensory abnormalities. Oncology: Obj Data - Labs CBC & Chem 7: 11/09/18 10:54 11/08/18 04:40 Consult Discharge Plan - Plan Instructions: Prednisone (By mouth), Diabetes Mellitus Type 2 in Adults (DC), Thrombocytopenia (DC) Referrals: Nelly Stewart MD [Partnered Physician] - 11/12/18 (2-3 days) NONE,PCP [Primary Care Provider] - Prescriptions: predniSONE [PredniSONE] 100 mg PO DAILY #100 tablet Inpatient Charges Provider: Dr. Tigre Stewart <Nelly Stewart - Last Filed: 11/09/18 15:52> Date of Encounter: 11/09/18 (1) Thrombocytopenia Status: Acute Oncology: Subj Interval history: NAemia, mild, c/o abd fullness and discomfort after meals. Imaging/EGD as outpatient. PPI, prednisone to continue. Labs to be done this wk and next wk in clinic. Will f/u as his appt outpt being scheduled. Discussed with housestaff this AM. Plan reviewed with pt and I examined this patient and my medical decision-making was reviewed with the Advanced Practice Nurse, Magalie Barraza. I agree with the documented findings, disposition and treatment plan as described except to the extent set forth below. Oncology: Obj Data - Labs CBC & Chem 7: 11/09/18 10:54 11/08/18 04:40 Inpatient Charges Provider: Dr. Tigre Stewart Follow up - Inpatient: [id number]
== END 2018-11-09 14:14 | disposition home or self-care (01) | DRG 661 ==
LOC: EMEROOARM 15:10 → ICNU 17:45 → SUATTDRO 17:45 → ICNU 19:48 → 2ANU 11-08 10:21
PROVIDERS: ADMIT Internal Medicine; ATTEND Internal Medicine

== ENCOUNTER 2018-11-16 22:43 | Observation (INO) ==
[2018-11-17 00:26] LABS: Eosinophils % 0.1 %; Hematocrit 28.7 % (37.5-50.1); Immature Granulocytes % 0.3 % (0-4); Lymphocytes # 4.5 K/mcL (0.6-4.6); Mean Corpuscular HGB Conc 34.8 g/dL (31.6-35.5); Mean Corpuscular Hemoglobin 31.3 pg (28.0-33.3); Mean Platelet Volume 8.7 fL (9.4-12.4); Monocytes # 0.3 K/mcL (0.0-1.3); Monocytes % 4.7 %; Neutrophils # 2.5 K/mcL (1.6-8.9); Red Blood Count 3.19 M/mcL (4.19-5.50); Red Cell Distribution Width 18.8 % (11.5-14.5); Segmented Neutrophils % 33.9 %; White Blood Count 7.3 K/mcL (4.3-11.1)
[2018-11-17 00:36] LABS: Platelet Count 6 K/mcL (140-400)
[2018-11-17 00:37] LABS: Prothrombin Time 10.8 Seconds (9.4-12.1)
[2018-11-17 00:39] LABS: Activated Partial Thrombo Time 27.8 Seconds (26.0-36.0)
[2018-11-17 01:13] LABS: Alanine Aminotransferase 27 Units/L (7-52); Albumin/Globulin Ratio 1.6 (1.1-2.2); Alkaline Phosphatase 56 Units/L (34-104); Aspartate Amino Transferase 12 Units/L (13-39); Bilirubin,Direct 0.1 mg/dL (0.0-0.2); Bilirubin,Indirect 0.3 mg/dL (0.0-1.2); Bilirubin,Total 0.4 mg/dL (0.3-1.0); Globulin 2.5 g/dL (2.4-3.5); Lipase 13 Units/L (11-82); Total Protein 6.5 g/dL (6.4-8.9)
[2018-11-17] MEDS ORDERED: 0.9 % Sodium Chloride 500 ML ONE (01:41)
[2018-11-17 01:58] LABS: BUN/Creatinine Ratio 20 (6-26); Blood Urea Nitrogen 16 mg/dL (6-20); Calcium 9.2 mg/dL (8.6-10.3); Carbon Dioxide 29 mEq/L (23-29); Chloride 98 mEq/L (98-107); Glucose 184 mg/dL (70-105); Osmolality,Calculated 276 (280-300); Potassium 4.1 mEq/L (3.5-5.1); Sodium 130 mEq/L (136-145); eGFR For African Americans > 60 (> 60); eGFR For Non-African Americans > 60 (> 60)
[2018-11-17] MEDS ORDERED: Loratadine 10 MG TABLET PO PRN (03:59)
[2018-11-17] MEDS ORDERED: methylPREDNISolone 125 MG/2 ML VIAL IVP ONE (04:00)
[2018-11-17] MEDS ORDERED: *HR* Dextrose 50 % in Water (Syg) 50 ML SYRINGE IVP PRN (04:01)
[2018-11-17] MEDS ORDERED: Dextrose Gel 15 GM/37.5 ML TUBE PO PRN ×2 (04:01)
[2018-11-17 04:51] LABS: Basophils % 0.1 %; Eosinophils % 0.2 %; Immature Granulocytes % 0.2 % (0-4)
[2018-11-17 04:53] LABS: Hematocrit 28.9 % (37.5-50.1); Immature Platelets 1.1 % (1.1-6.1); Lymphocytes # 5.9 K/mcL (0.6-4.6); Lymphocytes % 65.5 %; Mean Corpuscular HGB Conc 34.6 g/dL (31.6-35.5); Mean Corpuscular Hemoglobin 31.3 pg (28.0-33.3); Mean Corpuscular Volume 90.3 fL (83.0-100.0); Mean Platelet Volume 9.2 fL (9.4-12.4); Monocytes # 0.4 K/mcL (0.0-1.3); Monocytes % 4.9 %; Neutrophils # 2.6 K/mcL (1.6-8.9); Red Cell Distribution Width 18.6 % (11.5-14.5); Segmented Neutrophils % 29.1 %
[2018-11-17 04:57] LABS: Platelet Count 48 K/mcL (140-400)
[2018-11-17 05:26] LABS: Anisocytosis 2+ (Not Present); Macrocytosis Present (Not Present); Platelet Estimate Decreased (Normal); Polychromasia 1+ (Not Present)
[2018-11-17] MEDS: Insulin LISPRO 300 UNITS/3 ML VIAL SQ SCH ×5 (08:35→20:07)
[2018-11-17] MEDS: PARoxetine 20 MG TABLET PO SCH (08:36)
[2018-11-17] MEDS ORDERED: NIACIN 250 MG PO SCH (09:00)
[2018-11-17] MEDS ORDERED: Insulin DETEMIR 100 UNIT/ML X5UNITS SQ ONE (12:32)
[2018-11-17] MEDS ORDERED: IVIG (wt based) Privigen 5 GM/50 ML INFUS..BTL IVC ONE (15:14)
[2018-11-17] MEDS ORDERED: Immune Glob, Gamma (Privigen) 20 GM/200 ML INFUS..BTL IVC ONE ×5 (15:30→15:45)
[2018-11-17] MEDS: Insulin DETEMIR 100 UNIT/ML X5UNITS SQ SCH (20:06)
[2018-11-17] MEDS ORDERED: Insulin LISPRO 300 UNITS/3 ML VIAL SQ SCH (21:00)
[2018-11-17] MEDS: hydrOXYzine pamoate 25 MG CAPSULE PO PRN (23:11)
[2018-11-18 04:45] LABS: Eosinophils % 0.2 %; Hematocrit 27.6 % (37.5-50.1); Hemoglobin 9.4 g/dL (12.9-16.9); Immature Granulocytes % 0.4 % (0-4); Immature Platelets 1.2 % (1.1-6.1); Lymphocytes # 2.5 K/mcL (0.6-4.6); Lymphocytes % 53.4 %; Mean Corpuscular HGB Conc 34.1 g/dL (31.6-35.5); Mean Corpuscular Hemoglobin 31.1 pg (28.0-33.3); Mean Corpuscular Volume 91.4 fL (83.0-100.0); Mean Platelet Volume 10.4 fL (9.4-12.4); Monocytes # 0.3 K/mcL (0.0-1.3); Monocytes % 6.5 %; Neutrophils # 1.8 K/mcL (1.6-8.9); Red Blood Count 3.02 M/mcL (4.19-5.50); Segmented Neutrophils % 39.5 %; White Blood Count 4.6 K/mcL (4.3-11.1)
[2018-11-18 04:51] LABS: Platelet Count 26 K/mcL (140-400)
[2018-11-18 05:04] LABS: BUN/Creatinine Ratio 27 (6-26); Blood Urea Nitrogen 15 mg/dL (6-20); Carbon Dioxide 30 mEq/L (23-29); Chloride 97 mEq/L (98-107); Glucose 181 mg/dL (70-105); Osmolality,Calculated 277 (280-300); Potassium 4.7 mEq/L (3.5-5.1); Sodium 131 mEq/L (136-145); eGFR For African Americans > 60 (> 60); eGFR For Non-African Americans > 60 (> 60)
[2018-11-18] MEDS ORDERED: IVIG (wt based) Privigen 5 GM/50 ML INFUS..BTL IVC ONE (08:20)
[2018-11-18] MEDS: Insulin DETEMIR 100 UNIT/ML X5UNITS SQ SCH ×2 (08:52→21:24)
[2018-11-18] MEDS: Insulin LISPRO 300 UNITS/3 ML VIAL SQ SCH ×4 (08:52→21:23)
[2018-11-18] MEDS: Acetaminophen 325 MG TABLET PO PRN (08:53)
[2018-11-18] MEDS: PARoxetine 20 MG TABLET PO SCH (08:53)
[2018-11-18] MEDS ORDERED: Dexamethasone 4 MG/ML VIAL IVP SCH (09:00)
[2018-11-18] MEDS ORDERED: Immune Glob, Gamma (Privigen) 20 GM/200 ML INFUS..BTL IVC ONE ×5 (09:30)
[2018-11-18] MEDS: Dexamethasone 10 MG/ML VIAL IVP SCH (10:29)
[2018-11-18] MEDS: hydrOXYzine pamoate 25 MG CAPSULE PO PRN (23:06)
[2018-11-19 05:36] LABS: Hematocrit 27.9 % (37.5-50.1); Hemoglobin 9.7 g/dL (12.9-16.9); Immature Platelets 1.8 % (1.1-6.1); Mean Corpuscular HGB Conc 34.8 g/dL (31.6-35.5); Mean Corpuscular Hemoglobin 31.6 pg (28.0-33.3); Mean Corpuscular Volume 90.9 fL (83.0-100.0); Mean Platelet Volume 9.4 fL (9.4-12.4); Red Blood Count 3.07 M/mcL (4.19-5.50); Red Cell Distribution Width 18.8 % (11.5-14.5); White Blood Count 4.9 K/mcL (4.3-11.1)
[2018-11-19 05:55] LABS: BUN/Creatinine Ratio 29 (6-26); Blood Urea Nitrogen 17 mg/dL (6-20); Calcium 8.5 mg/dL (8.6-10.3); Carbon Dioxide 26 mEq/L (23-29); Chloride 93 mEq/L (98-107); Glucose 236 mg/dL (70-105); Osmolality,Calculated 275 (280-300); Potassium 4.1 mEq/L (3.5-5.1); Sodium 128 mEq/L (136-145); eGFR For African Americans > 60 (> 60); eGFR For Non-African Americans > 60 (> 60)
[2018-11-19] MEDS: Insulin LISPRO 300 UNITS/3 ML VIAL SQ SCH ×4 (08:09→20:31)
[2018-11-19] MEDS: Insulin DETEMIR 100 UNIT/ML X5UNITS SQ SCH ×2 (08:10→20:31)
[2018-11-19] MEDS: PARoxetine 20 MG TABLET PO SCH (08:11)
[2018-11-19] MEDS: Dexamethasone 10 MG/ML VIAL IVP SCH (08:13)
[2018-11-19] MEDS: Acetaminophen 325 MG TABLET PO PRN (08:31)
[2018-11-20 00:25] VITALS: BP 124/76
== END 2018-11-20 00:50 | disposition critical access hospital (66) ==
LOC: 3ANU 22:43 → EMEROOARM 22:43 → SUATTDRO 11-17 02:21 → 3ANU 11-17 04:04
PROVIDERS: ADMIT Internal Medicine; ATTEND Internal Medicine

== ENCOUNTER 2019-12-03 17:32 | Observation (INO) ==
[2019-12-03] MEDS ORDERED: 0.9 % Sodium Chloride 1,000 ML IVC ONE ×2 (18:25→21:07)
[2019-12-03 18:55] LABS: INR 0.9; Prothrombin Time 10.5 Seconds (9.4-12.1)
[2019-12-03 18:59] LABS: Bilirubin,Urine Negative (Negative); Blood,Urine Negative (Negative); Clarity,Urine Clear (Clear); Color,Urine Light-Yellow (Yellow); Glucose,Urine (UA) >=1000 mg/dL (Normal); Ketones,Urine 80 mg/dL (Negative); Leukocyte Esterase,Urine Negative (Negative); Mucus,Urine Few per lpf (None-Few); Nitrite,Urine Negative (Negative); Protein,Urine Negative (Neg-Trace); RBC,Urine 0-3 per hpf (0-3); Specific Gravity,Urine > 1.030 (1.010-1.025); Squamous Epithelial Cell,Urine Few per hpf (None-Few); Urobilinogen,Urine Normal (Normal)
[2019-12-03 19:06] LABS: Basophils # 0.1 K/mcL (0.0-0.2); Basophils % 0.3 %; Eosinophils % 0.1 %; Hematocrit 43.3 % (37.5-50.1); Hemoglobin 14.3 g/dL (12.9-16.9); Lymphocytes # 2.1 K/mcL (0.6-4.6); Lymphocytes % 10.8 %; Mean Corpuscular Hemoglobin 29.1 pg (28.0-33.3); Mean Corpuscular Volume 88.2 fL (83.0-100.0); Mean Platelet Volume 9.3 fL (9.4-12.4); Monocytes # 1.6 K/mcL (0.0-1.3); Monocytes % 8.4 %; Neutrophils # 15.2 K/mcL (1.6-8.9); Platelet Count 252 K/mcL (140-400); Red Blood Count 4.91 M/mcL (4.19-5.50); Red Cell Distribution Width 14.2 % (11.5-14.5); Segmented Neutrophils % 79.4 %; White Blood Count 19.1 K/mcL (4.3-11.1)
[2019-12-03 19:28] LABS: Alanine Aminotransferase 29 Units/L (7-52); Albumin 4.5 g/dL (3.5-5.7); Albumin/Globulin Ratio 1.5 (1.1-2.2); Alkaline Phosphatase 77 Units/L (34-104); Aspartate Amino Transferase 23 Units/L (13-39); BUN/Creatinine Ratio 33 (6-26); Bilirubin,Total 0.4 mg/dL (0.3-1.0); Blood Urea Nitrogen 17 mg/dL (6-20); Calcium 9.9 mg/dL (8.6-10.3); Carbon Dioxide 22 mEq/L (23-29); Chloride 95 mEq/L (98-107); Creatine Kinase 47 Units/L (30-223); Glucose 249 mg/dL (70-105); Osmolality,Calculated 282 (280-300); Sodium 131 mEq/L (136-145); Total Protein 7.5 g/dL (6.4-8.9); Troponin I < 0.03 ng/mL (< 0.04); eGFR For African Americans > 60 (> 60); eGFR For Non-African Americans > 60 (> 60)
[2019-12-03 19:53] LABS: Adenovirus Not Detected (Not Detect); Bordetella Pertussis Not Detected (Not Detect); Chlamydophila pneumoniae Not Detected (Not Detect); Coronavirus 229E Not Detected (Not Detect); Coronavirus HKU1 Not Detected (Not Detect); Coronavirus NL63 Not Detected (Not Detect); Coronavirus OC43 Not Detected (Not Detect); Human Metapneumovirus Not Detected (Not Detect); Human Rhinovirus/Enterovirus Not Detected (Not Detect); Influenza A Subtype 2009 H1 Not Detected (Not Detect); Influenza B Not Detected (Not Detect); Mycoplasma pneumoniae Not Detected (Not Detect); Parainfluenza Virus 1 Not Detected (Not Detect); Parainfluenza Virus 2 Not Detected (Not Detect); Parainfluenza Virus 3 Not Detected (Not Detect); Parainfluenza Virus 4 Not Detected (Not Detect); Respiratory Syncytial Virus Not Detected (Not Detect)
[2019-12-03 19:55] LABS: SARS-CoV-2 Not Detected (Not Detect)
[2019-12-03] MEDS ORDERED: Piperacillin/Tazobactam 3.375 GM in Water for inj. (sterile) 20 ML IVP ONE (21:02)
[2019-12-03 21:37] LABS: VBG HCO3 20 mEq/L (21-27); VBG PCO2 32 mmHg (41-51); VBG PH 7.41 pH Units (7.32-7.42); VBG PO2 119 mmHg (25-50)
[2019-12-03] MEDS ORDERED: Naloxone 0.4 MG/ML INJ IVP PRN (22:57)
[2019-12-03] MEDS ORDERED: *HR* Dextrose 50 % in Water (Vial) 50 ML VIAL IVP PRN (23:56)
[2019-12-03] MEDS ORDERED: Dextrose Gel 15 GM/37.5 ML TUBE PO PRN ×2 (23:56)
[2019-12-03] MEDS ORDERED: D5% in Water 1,000 ML IVC PRN (23:56)
[2019-12-04 00:24] LABS: BUN/Creatinine Ratio 30 (6-26); Blood Urea Nitrogen 16 mg/dL (6-20); Carbon Dioxide 17 mEq/L (23-29); Chloride 99 mEq/L (98-107); Glucose 182 mg/dL (70-105); Magnesium 1.7 mg/dL (1.6-2.6); Osmolality,Calculated 280 (280-300); Phosphorous 4.2 mg/dL (2.7-4.5); Potassium 3.7 mEq/L (3.5-5.1); Sodium 132 mEq/L (136-145); eGFR For African Americans > 60 (> 60); eGFR For Non-African Americans > 60 (> 60)
[2019-12-04 01:33] LABS: Basophils # 0.1 K/mcL (0.0-0.2); Basophils % 0.4 %; Eosinophils % 0.2 %; Hematocrit 38.2 % (37.5-50.1); Immature Granulocytes % 0.8 % (0-4); Lymphocytes # 3.1 K/mcL (0.6-4.6); Lymphocytes % 18.2 %; Mean Corpuscular HGB Conc 32.2 g/dL (31.6-35.5); Mean Corpuscular Hemoglobin 29.6 pg (28.0-33.3); Mean Platelet Volume 9.6 fL (9.4-12.4); Monocytes # 1.3 K/mcL (0.0-1.3); Monocytes % 7.7 %; Neutrophils # 12.3 K/mcL (1.6-8.9); Platelet Count 205 K/mcL (140-400); Red Blood Count 4.15 M/mcL (4.19-5.50); Red Cell Distribution Width 14.4 % (11.5-14.5); Segmented Neutrophils % 72.7 %; White Blood Count 16.9 K/mcL (4.3-11.1)
[2019-12-04 01:35] LABS: Hemoglobin 12.3 g/dL (12.9-16.9)
[2019-12-04 01:52] LABS: BUN/Creatinine Ratio 24 (6-26); Blood Urea Nitrogen 13 mg/dL (6-20); Calcium 8.2 mg/dL (8.6-10.3); Carbon Dioxide 20 mEq/L (23-29); Chloride 100 mEq/L (98-107); Glucose 213 mg/dL (70-105); Magnesium 1.6 mg/dL (1.6-2.6); Osmolality,Calculated 280 (280-300); Potassium 3.7 mEq/L (3.5-5.1); Sodium 132 mEq/L (136-145); eGFR For African Americans > 60 (> 60); eGFR For Non-African Americans > 60 (> 60)
[2019-12-04] MEDS: Azithromycin 250 MG TABLET PO SCH (08:15)
[2019-12-04] MEDS: cefTRIAXone 1,000 MG in Water for inj. (sterile) 10 ML IVP SCH (08:15)
[2019-12-04] MEDS: Insulin LISPRO 300 UNITS/3 ML VIAL SQ SCH ×3 (08:16→16:55)
[2019-12-04] MEDS ORDERED: Acetaminophen 325 MG TABLET PO PRN (10:47)
[2019-12-04] MEDS ORDERED: Ibuprofen 600 MG TABLET PO PRN (11:44)
[2019-12-04] MEDS ORDERED: Insulin LISPRO 300 UNITS/3 ML VIAL SQ SCH (21:00)
[2019-12-04] MEDS ORDERED: hydrOXYzine pamoate 25 MG CAPSULE PO PRN (21:42)
[2019-12-05 04:24] LABS: Basophils # 0.1 K/mcL (0.0-0.2); Basophils % 0.7 %; Eosinophils # 0.1 K/mcL (0.0-0.6); Eosinophils % 0.8 %; Hematocrit 39.8 % (37.5-50.1); Hemoglobin 13.2 g/dL (12.9-16.9); Immature Granulocytes % 0.8 % (0-4); Lymphocytes # 2.6 K/mcL (0.6-4.6); Mean Corpuscular HGB Conc 33.2 g/dL (31.6-35.5); Mean Corpuscular Hemoglobin 30.1 pg (28.0-33.3); Mean Corpuscular Volume 90.9 fL (83.0-100.0); Mean Platelet Volume 9.4 fL (9.4-12.4); Monocytes # 0.7 K/mcL (0.0-1.3); Monocytes % 9.8 %; Neutrophils # 3.9 K/mcL (1.6-8.9); Platelet Count 208 K/mcL (140-400); Red Blood Count 4.38 M/mcL (4.19-5.50); Red Cell Distribution Width 14.3 % (11.5-14.5); Segmented Neutrophils % 52.9 %
[2019-12-05 04:26] LABS: White Blood Count 7.4 K/mcL (4.3-11.1)
[2019-12-05 04:42] LABS: BUN/Creatinine Ratio 22 (6-26); Blood Urea Nitrogen 11 mg/dL (6-20); Calcium 8.7 mg/dL (8.6-10.3); Carbon Dioxide 23 mEq/L (23-29); Chloride 102 mEq/L (98-107); Glucose 224 mg/dL (70-105); Osmolality,Calculated 288 (280-300); Potassium 4.1 mEq/L (3.5-5.1); Sodium 136 mEq/L (136-145); eGFR For African Americans > 60 (> 60); eGFR For Non-African Americans > 60 (> 60)
[2019-12-05] MEDS: Azithromycin 250 MG TABLET PO SCH (09:43)
[2019-12-05] MEDS: cefTRIAXone 1,000 MG in Water for inj. (sterile) 10 ML IVP SCH (09:43)
[2019-12-05] MEDS: Insulin LISPRO 300 UNITS/3 ML VIAL SQ SCH (09:43)
[2019-12-05 11:15] VITALS: BP 133/84
== END 2019-12-05 13:02 | disposition home or self-care (01) ==
LOC: 3ANU 17:32 → EMEROOARM 17:32 → SUATTDRO 22:42 → 3ANU 23:05
PROVIDERS: ADMIT Family Medicine; ATTEND Internal Medicine